=== PATIENT | male | born 1975 | race Hispanic/Latino ===

== ENCOUNTER 2018-05-05 11:15 | Emergency (ER) | payer BC, SELFPAY ==
[2018-05-05 11:58] LABS: Absolute Lymphocytes (CBC) 3.7 K/uL (0.7-4.9); Absolute Neutrophil 8.4 K/uL (1.8-8.0); Basophils % 0.5 % (0-1.3); Eosinophils % 0.7 % (0-4.4); Hematocrit 49.8 % (39.6-49.0); MCH 32.6 pg (27.0-35.0); MCV 93.7 fL (80-100); MPV 9.4 fL (7.6-11.3); Monocytes % 7.6 % (3.3-12.3); RBC Red Blood Cell Count 5.31 M/uL (4.33-5.43)
[2018-05-05 12:03] LABS: Protime INR 1.03
[2018-05-05 12:22] LABS: ALT/SGPT 49 U/L (12-78); AST/SGOT 35 U/L (15-37); Albumin 4.2 g/dL (3.4-5.0); Alkaline Phosphatase 111 U/L (45-117); BUN Blood Urea Nitrogen 20 mg/dL (7-18); Bicarbonate 29 mmol/L (21-32); Bilirubin Direct 0.1 mg/dL (0-0.2); Bilirubin Total 0.6 mg/dL (0.2-1.0); Creatine Phosphokinase 162 U/L (39-308); Glucose Level 95 mg/dL (74-106); Magnesium 2.5 mg/dL (1.8-2.4); NT PRO-BNP 29 pg/mL (<125); Potassium 4.1 mmol/L (3.5-5.1); Protein, Total 8.6 g/dL (6.4-8.2); Sodium Level 140 mmol/L (136-145)
--- NOTE | 2018-05-05 12:49 | RAD REPORT ---
EXAM DESCRIPTION: Brandon Single View05/05/2018 12:33 pm CLINICAL HISTORY: Chest pain COMPARISON: December 2016 FINDINGS: The lungs appear clear of acute infiltrate. The heart is normal size IMPRESSION: No acute abnormalities displayed
--- NOTE | 2018-05-05 15:07 | EKG ---
Test Date: 2018-05-05 Test Time: 11:46:25 [employer] Quality Assurance Officer: NATHAN MEASUREMENT RESULTS: Intervals: Rate: 75 IL: 140 QRSD: 94 QT: 382 QTc: 426 Lavelle: P: 60 IL: 140 QRS: 84 T: 57 INTERPRETIVE STATEMENTS: Normal sinus rhythm with sinus arrhythmia Normal ECG Compared to ECG 12/23/2016 12:08:24 No significant changes Electronically Signed On 05-05-18 15:06:32 CDT by Jose Paz
--- NOTE | 2018-05-05 15:10 | ER ---
Nurse's Notes [facility] Name: Sincere Gray Age: 42 yrs Sex: Male : 1975 Arrival Date: 05/05/2018 Time: 11:19 Bed 4 Private MD: None, None Diagnosis: Chest pain on breathing Presentation: 05/05 11:31 Presenting complaint: Patient states: Chest pain that has been intermittent for the aj1 past month. Patient has not been able to see a PHCP regarding this complaint. States that today he was working and his chest pain got worse and he started to have a headache. Reports left sided chest pain that he describes as "heaviness" Denies SOB, nausea, dizziness. Transition of care: patient was not received from another setting of care. Onset of symptoms was March 2018. Risk Assessment: Do you want to hurt yourself or someone else? Patient reports no desire to harm self or others. Initial Sepsis Screen: Does the patient meet any 2 criteria? No. Patient's initial sepsis screen is negative. Does the patient have a suspected source of infection? No. Patient's initial sepsis screen is negative. Care prior to arrival: None. 11:31 Method Of Arrival: Ambulatory aj1 11:31 Acuity: ELPIDIO 3 aj1 Triage Assessment: 11:35 General: Appears in no apparent distress. comfortable, Behavior is calm, cooperative, aj1 appropriate for age. Pain: Complains of pain in anterior aspect of left upper chest Pain radiates to left scapular area, anterior aspect of left shoulder and posterior aspect of left shoulder Pain currently is 5 out of 10 on a pain scale. at worst was 8 out of 10 on a pain scale. Quality of pain is described as heavy, Is intermittent. Neuro: Level of Consciousness is awake, alert, obeys commands. Cardiovascular: Patient's skin is warm and dry. Chest pain is described as Pain is 5 out of 10 on a pain scale. quality is heaviness, is located in left anterior chest wall radiates to left back shoulder episodes are intermittent. Respiratory: Airway is patent Respiratory effort is even, unlabored, Respiratory pattern is regular, symmetrical. Derm: Skin is pink, warm \\T\\ dry. normal. Historical: - Allergies: 11:35 No Known Allergies; aj1 - Home Meds: 11:35 None [Active]; aj1 - PMHx: 11:35 None; aj1 - PSHx: 11:35 Hernia repair; aj1 - Immunization history:: Flu vaccine is not up to date. - Social history:: Smoking status: Patient/guardian denies using tobacco. - Ebola Screening: : Patient denies travel to an Ebola-affected area in the 21 days before illness onset. Screenin:45 Abuse screen: Denies threats or abuse. Denies injuries from another. Nutritional sv screening: No deficits noted. Tuberculosis screening: No symptoms or risk factors identified. Fall Risk None identified. Assessment: 11:45 General: Appears in no apparent distress. comfortable, well developed, Behavior is sv calm, cooperative, appropriate for age. Pain: Complains of pain in anterior aspect of left upper chest and left breast Pain currently is 5 out of 10 on a pain scale. Quality of pain is described as pressure, Pain began "over a month ago" Is intermittent, Current management - is no interventions. Neuro: Level of Consciousness is awake, alert, obeys commands, Oriented to person, place, time, situation, Moves all extremities. Full function Gait is steady, Speech is normal. Cardiovascular: Heart tones S1 S2 present Patient's skin is warm and dry. Pulses are 3+ in right radial artery and left radial artery. Respiratory: Respiratory effort is even, unlabored, Respiratory pattern is regular, symmetrical, Breath sounds are clear bilaterally. Denies shortness of breath. Derm: Skin is. Musculoskeletal: Range of motion: intact in all extremities. 12:41 Reassessment: Patient appears in no apparent distress at this time. No changes from hb previously documented assessment. Patient and/or family updated on plan of care and expected duration. Pain level reassessed. Patient is alert, oriented x 3, equal unlabored respirations, skin warm/dry/pink. 13:30 Reassessment: Patient appears in no apparent distress at this time. Patient and/or hb family updated on plan of care and expected duration. Pain level reassessed. Patient is alert, oriented x 3, equal unlabored respirations, skin warm/dry/pink. Patient states symptoms have improved. 14:30 Reassessment: Patient appears in no apparent distress at this time. No changes from hb previously documented assessment. Patient and/or family updated on plan of care and expected duration. Pain level reassessed. Patient is alert, oriented x 3, equal unlabored respirations, skin warm/dry/pink. 15:30 Reassessment: Patient appears in no apparent distress at this time. No changes from hb previously documented assessment. Patient and/or family updated on plan of care and expected duration. Pain level reassessed. Patient is alert, oriented x 3, equal unlabored respirations, skin warm/dry/pink. Vital Signs: 11:35 BP 128 / 82; Pulse 72; Resp 18; Temp 98.3(TE); Pulse Ox 95% on R/A; Weight 104.33 kg aj1 (R); Height 5 ft. 6 in. (167.64 cm) (R); Pain 5/10; 12:18 BP 114 / 84; Pulse 70; Resp 16; Pulse Ox 95% on R/A; sv 12:41 BP 126 / 81; Pulse 66; Resp 16; Pulse Ox 96% on R/A; hb 13:30 BP 112 / 65; Pulse 58; Resp 20; Pulse Ox 85% on R/A; sv 15:06 BP 111 / 76; Pulse 56; Resp 22; Pulse Ox 99% on 2 lpm NC; sv 11:35 Body Mass Index 37.12 (104.33 kg, 167.64 cm) aj1 13:30 Pt placed on O2 \\T\\ 2L per NC. O2 sat up to 99%. Pt reports he has sleep apnea and wears sv a CPAP at night. ED Course: 11:19 Patient arrived in ED. mr 11:20 None, None is Private Physician. mr 11:34 Triage completed. aj1 11:35 Arm band placed on Patient placed in an exam room. aj1 11:39 Lavern Ye, RN is Primary Nurse. sv 11:40 Missed attempt(s): 20 gauge in right antecubital area. done by Dena MEI. Bleeding sv controlled, band aid applied, catheter tip intact. 11:45 Patient has correct armband on for positive identification. Placed in gown. Bed in low sv position. Side rails up X 1. cardiac monitor technician on. Pulse ox on. NIBP on. Door closed. Head of bed elevated. 11:45 Initial lab(s) drawn, by me, sent to lab. Inserted saline lock: 20 gauge in right sv forearm, using aseptic technique. Blood collected. Flushed right forearm with 5 ml normal saline. 11:45 Patient maintains SpO2 saturation greater than 95% on room air. sv 11:49 Cisco Gan MD is Attending Physician. kdr 12:23 Awaiting ED provider evaluation. sv 12:23 X-ray(s) taken. sv 12:32 X-ray completed. Portable x-ray completed in exam room. Patient tolerated procedure kw well. 12:33 XRAY Chest (1 view) In Process Unspecified. EDMS 16:20 No provider procedures requiring assistance completed. IV discontinued, intact, sv bleeding controlled, No redness/swelling at site. Pressure dressing applied. Administered Medications: No medications were administered Outcome: 15:09 Discharge ordered by . kdr 16:20 Patient left the ED. hb 16:20 Discharged to home ambulatory. sv 16:20 Condition: stable 16:20 Discharge instructions given to patient, Instructed on discharge instructions, follow up and referral plans. Demonstrated understanding of instructions, follow-up care. Signatures: Dispatcher [employer] EDMS Marian Walker RN RN aj1 Lavern Ye RN RN Cisco Gan MD MD kdr Lisset Díaz Anni Asif Heather, HAMIDA MEI hb
--- NOTE | 2018-05-05 15:10 | EDPHYS ---
Physician Documentation [facility] Name: Sincere Gray Age: 42 yrs Sex: Male : 1975 Arrival Date: 05/05/2018 Time: 11:19 Bed 4 Private MD: None, None ED Physician Cisco Gan HPI: 05/06 07:14 This 42 yrs old Male presents to ER via Ambulatory with complaints of Chest kdr Pain. 07:14 The patient or guardian reports chest pain that is located primarily in the anterior kdr chest wall, left. Onset: gradually, 1 month(s) ago. The pain does not radiate. Associated signs and symptoms: Pertinent positives: None. Pertinent negatives: abdominal pain, cough, lightheadedness, nausea, shortness of breath. The chest pain is described as aching, dull, sharp. Duration: The patient or guardian reports a single episode, that is still ongoing. Modifying factors: The symptoms are alleviated by nothing. the symptoms are aggravated by nothing. Severity of pain: At its worst the pain was mild in the emergency department the pain is unchanged. The patient has not experienced similar symptoms in the past. The patient has not recently seen a physician. Historical: - Allergies: 05/05 11:35 No Known Allergies; aj1 - Home Meds: 11:35 None [Active]; aj1 - PMHx: 11:35 None; aj1 - PSHx: 11:35 Hernia repair; aj1 - Immunization history:: Flu vaccine is not up to date. - Social history:: Smoking status: Patient/guardian denies using tobacco. - Ebola Screening: : Patient denies travel to an Ebola-affected area in the 21 days before illness onset. ROS: 05/06 07:14 Constitutional: Negative for fever, chills, and weight loss, Eyes: Negative for injury, kdr pain, redness, and discharge, ENT: Negative for injury, pain, and discharge, Neck: Negative for injury, pain, and swelling, Respiratory: Negative for shortness of breath, cough, wheezing, and pleuritic chest pain, Abdomen/GI: Negative for abdominal pain, nausea, vomiting, diarrhea, and constipation, Back: Negative for injury and pain, : Negative for injury, bleeding, discharge, and swelling, MS/Extremity: Negative for injury and deformity, Skin: Negative for injury, rash, and discoloration, Neuro: Negative for headache, weakness, numbness, tingling, and seizure activity. Psych: Negative for depression, anxiety, suicide ideation, homicidal ideation, and hallucinations, Allergy/Immunology: Negative for hives, rash, and allergies, Endocrine: Negative for neck swelling, polydipsia, polyuria, polyphagia, and marked weight changes, Hematologic/Lymphatic: Negative for swollen nodes, abnormal bleeding, and unusual bruising. Cardiovascular: Positive for chest pain, Negative for edema, orthopnea, palpitations, paroxysmal nocturnal dyspnea. Exam: 07:14 Constitutional: This is a well developed, well nourished patient who is awake, alert, kdr and in no acute distress. Head/Face: Normocephalic, atraumatic. Eyes: Pupils equal round and reactive to light, extra-ocular motions intact. Lids and lashes normal. Conjunctiva and sclera are non-icteric and not injected. Cornea within normal limits. Periorbital areas with no swelling, redness, or edema. Neck: Trachea midline, no thyromegaly or masses palpated, and no cervical lymphadenopathy. Supple, full range of motion without nuchal rigidity, or vertebral point tenderness. No Meningismus. Chest/axilla: Normal chest wall appearance and motion. Nontender with no deformity. No lesions are appreciated. Cardiovascular: Regular rate and rhythm with a normal S1 and S2. No gallops, murmurs, or rubs. Normal PMI, no JVD. No pulse deficits. Respiratory: Lungs have equal breath sounds bilaterally, clear to auscultation and percussion. No rales, rhonchi or wheezes noted. No increased work of breathing, no retractions or nasal flaring. Abdomen/GI: Soft, non-tender, with normal bowel sounds. No distension or tympany. No guarding or rebound. No evidence of tenderness throughout. Back: No spinal tenderness. No costovertebral tenderness. Full range of motion. Skin: Warm, dry with normal turgor. Normal color with no rashes, no lesions, and no evidence of cellulitis. MS/ Extremity: Pulses equal, no cyanosis. Neurovascular intact. Full, normal range of motion. Neuro: Awake and alert, GCS 15, oriented to person, place, time, and situation. Cranial nerves II-XII grossly intact. Motor strength 5/5 in all extremities. Sensory grossly intact. Cerebellar exam normal. Normal gait. Psych: Awake, alert, with orientation to person, place and time. Behavior, mood, and affect are within normal limits. Vital Signs: 05/05 11:35 BP 128 / 82; Pulse 72; Resp 18; Temp 98.3(TE); Pulse Ox 95% on R/A; Weight 104.33 kg aj1 (R); Height 5 ft. 6 in. (167.64 cm) (R); Pain 5/10; 12:18 BP 114 / 84; Pulse 70; Resp 16; Pulse Ox 95% on R/A; sv 12:41 BP 126 / 81; Pulse 66; Resp 16; Pulse Ox 96% on R/A; hb 13:30 BP 112 / 65; Pulse 58; Resp 20; Pulse Ox 85% on R/A; sv 15:06 BP 111 / 76; Pulse 56; Resp 22; Pulse Ox 99% on 2 lpm NC; sv 11:35 Body Mass Index 37.12 (104.33 kg, 167.64 cm) aj1 13:30 Pt placed on O2 \T\ 2L per NC. O2 sat up to 99%. Pt reports he has sleep apnea and wears sv a CPAP at night. MDM: 15:09 Patient medically screened. kdr 05/06 07:14 HEART Score: History: Slightly Suspicious (0), ECG: Normal (0), Age: < or = 45 years kdr (0), Risk Factors: No Risk Factors Known (0), Troponin: < or = 1 x Normal Limit (0), Total Score =. Data reviewed: vital signs, nurses notes, lab test result(s), radiologic studies. 05/05 11:39 Order name: Basic Metabolic Panel; Complete Time: 12:25 sv 05/05 11:39 Order name: CBC with Diff; Complete Time: 12:25 05/05 11:39 Order name: Ckmb; Complete Time: 12:25 05/05 11:39 Order name: CPK; Complete Time: 12:25 05/05 11:39 Order name: LFT's; Complete Time: 12:25 05/05 11:39 Order name: Magnesium; Complete Time: 12:25 05/05 11:39 Order name: NT PRO-BNP; Complete Time: 12:25 05/05 11:39 Order name: PT-INR; Complete Time: 12:25 sv 05/05 11:39 Order name: Ptt, Activated; Complete Time: 12:25 sv 05/05 11:39 Order name: Troponin (emerg Dept Use Only); Complete Time: 12:25 sv 05/05 11:39 Order name: XRAY Chest (1 view); Complete Time: 13:09 sv 05/05 11:39 Order name: EKG; Complete Time: 11:40 sv 05/05 11:39 Order name: Cardiac monitoring; Complete Time: :51 sv 05/05 11:39 Order name: EKG - Nurse/Tech; Complete Time: :51 sv 05/05 11:39 Order name: IV Saline Lock; Complete Time: sv 05/05 11:39 Order name: Labs collected and sent; Complete Time: :51 sv 05/05 11:39 Order name: O2 Per Protocol; Complete Time: : sv 05/05 11:39 Order name: O2 Sat Monitoring; Complete Time: :51 sv Administered Medications: No medications were administered Disposition: 05/05/18 15:09 Discharged to Home. Impression: Chest pain on breathing. - Condition is Stable. - Discharge Instructions: Chest Wall Pain, [id number], Nonspecific Chest Pain, [id number]. - Medication Reconciliation Form, Thank You Letter form. - Follow up: Private Physician; When: 2 - 3 days; Reason: If symptoms return, Further diagnostic work-up, Recheck today's complaints, Continuance of care, Re-evaluation by your physician. - Problem is an ongoing problem. - Symptoms have improved. Signatures: Dispatcher [employer] Marian Martin RN RN aj1 Lavern Ye RN RN sv Cisco Gan MD MD [facility] Dena Chavez RN RN hb Corrections: (The following items were deleted from the chart) 05/05 16:20 15:09 05/05/2018 15:09 Discharged to Home. Impression: Chest pain on breathing. hb Condition is Stable. Forms are Medication Reconciliation Form, Thank You Letter, Antibiotic Education, Prescription Opioid Use. Follow up: Private Physician; When: 2 - 3 days; Reason: If symptoms return, Further diagnostic work-up, Recheck today's complaints, Continuance of care, Re-evaluation by your physician. Problem is an ongoing problem. Symptoms have improved. kdr
[2018-05-05 16:35] VITALS: TEMP 98.3
[2018-05-05 16:40] VITALS: BP 111/76; O2SAT 99
== END 2018-05-05 16:20 | disposition home or self-care (01) ==
LOC: ER 11:15
DX: R07.9 Chest pain, unspecified (principal)
CPT/HCPCS: 36415; 71045; 80048; 80076; 82550; 82553; 83735; 83880; 84484; 85025; 85610; 85730; 93005; 99285